=== PATIENT | female | born 1985 | race African-American/Black ===

== ENCOUNTER 2017-03-01 17:58 | Emergency (ER) | payer OTHER ==
[~2017-03-01] VITALS: Ht 157.5 cm; Wt 55.3 kg
--- NOTE | ~2017-03-01 | EKG ---
[address] [address] ELECTROCARDIOGRAM REPORT Name: WANDA GUERRA Room #: [facility] Miguel#: [id number] Admission: 03/01/17 Attend Phys: Discharge: 03/01/17 Date of : 85 Report #: [id number] THIS REPORT FOR: //name// [facility] ED Test Date: 2017-03-01 Test Time: 18:05:08 Pat Name: WANDA GUERRA Department: Room: Gender: F Engine Tester: [id number] : 1985 Requested By: Matt Santo Order Number: [id number] MD: Michael Garza Measurements Intervals Webb Rate: 56 P: -14 ID: [id number] QRS: 39 QRSD: 84 T: 40 QT: 427 QTc: 413 Interpretive Statements Sinus arrhythmia Normal tracing No previous ECG available for comparison Electronically Signed On 03-02-2017 7:40:49 CDT by Michael Garza [email or web address] <ELECTRONICALLY SIGNED> By: Michael Garza MD, [facility] 03/02/17 0740 1805 1805 Michael Garza MD, FACC /EPI
[~2017-03-01 17:58] MED LIST: IBUPROFEN 600600 M1 PO; TRINATE TABLET1 TAB PO; VIBRAMYCIN 100100 MG PO
[2017-03-01] MEDS ORDERED: IBUPROFEN 800800 M1 PO (18:30)
[2017-03-01 18:54] VITALS: BP 122/80
== END 2017-03-01 18:55 | disposition home or self-care (01) ==
LOC: ER 17:58
DX: R07.89 Other chest pain (principal); J45.909 Unspecified asthma, uncomplicated